=== PATIENT | male | born 1935 | race Caucasian/White ===

== ENCOUNTER 2018-08-05 15:38 | Inpatient (IN) | payer OTHER ==
[~2018-08-05] VITALS: Ht 175.3 cm; Wt 68.0 kg
[~2018-08-05 15:38] MED LIST: ACETAMINOPHEN-1 EAC1 PO; APAP W/CODEINE1 TA2 PO; ASA81BEC PO; ATORVASTATIN CA40 MG PO; EFFIENT10 MG PO; FLONASE 0.05%50 MCG INH; HYDROCODONE-AP1 EAC6 PO; LISINOPRIL5 MG PO; NITROGLYCERIN0.4 MG SL; NORCO 10-325 T1 EACH PO; PLAVIX 75 MG TA75 M1 PO; PROTONIX40 M1 PO; TIMOLOL MA0.25 %/5 M OP; TOPROL XL25 MG PO; XALATAN2.5 ML OP; ZANTAC 150MG T150 MG PO
[2018-08-05] MEDS ORDERED: FISH OIL 1,001000 M2 PO (18:08)
[2018-08-05] MEDS ORDERED: HYDROCODON-ACE1 EAC5 PO (18:09)
[2018-08-05] MEDS ORDERED: CLOPIDOGREL75 MG PO (18:10)
[2018-08-05] MEDS ORDERED: ASPIR 8181 MG PO (18:11)
[2018-08-05] MEDS ORDERED: ATORVASTATIN CA40 MG PO (18:11)
[2018-08-05] MEDS ORDERED: TESSALON PERLE100 MG PO (18:12)
[2018-08-05] MEDS ORDERED: XALATAN2.5 ML OPHTHALMIC (18:13)
[2018-08-05 18:15] VITALS: BP 117/68
[2018-08-05] MEDS ORDERED: TIMOLOL MA0.25 %/52 (18:15)
--- NOTE | 2018-08-05 18:35 | NUR ---
adm PT IS A DIRECT ADMIT FROM [facility]. PT ORIENTED TO ROOM. FAMILY AT BEDSIDE, SEEN AND EXAMINED BY HOSPITALIST. ADM ORDERS CARRIED OUT.
[2018-08-06 03:58] VITALS: BP 123/72
[2018-08-06 05:43] LABS: HEMOGLOBIN 12.3 gm/dL (14.0-18.0); MCH 30.8 pg (26.0-34.0); MCHC 33.3 g/dL (28.0-37.0); MCV 92.6 fL (80.0-100.0); RDW 13.9 % (10.5-14.5); WBC 6.7 thou/uL (4.0-11.0)
[2018-08-06 05:53] LABS: INR 1.1; PROTIME 11.6 Seconds (9.3-11.4)
[2018-08-06 06:13] LABS: ALBUMIN 2.8 g/dL (3.4-5.0); CALCIUM 8.4 mg/dL (8.5-10.1); CREATININE 0.8 mg/dL (0.7-1.3); TOTAL BILIRUBIN 0.5 mg/dL (<0.1-1.0); TOTAL PROTEIN 5.3 g/dL (6.4-8.2)
--- NOTE | 2018-08-06 06:41 | NUR ---
Assumed care at 1845. Pt resting in bed. Complained of back pain. Gave him some pain medication. Vitals are stable and call light within reach. Will continue to monitor.
[2018-08-06 07:18] VITALS: BP 155/86
--- NOTE | 2018-08-06 13:56 | 2DMMODE ---
[facility] [address] [place] [address] 2 D/M-MODE ECHOCARDIOGRAM Name: JACKSONDAWIT VARGAS Room #: 462-P ADM IN M.R.#: [id number] Admission: 08/05/18 Attend Phys: Dejon Moran Discharge: Date of : 37 Date of Service: 08/06/18 1356 Report #: [id number] THIS REPORT FOR: //name// APPROVED REPORT Study performed: 08/06/2018 11:51:37 EXAM: Comprehensive 2D, Doppler, and color-flow Echocardiogram Patient Location: Echo lab Room #: 462 Status: routine BSA: 1.83 HR: 61 bpm BP: 155/86 mmHg Rhythm: NSR Other Information Study Quality: Adequate Indications COPD CAD Hypertension/HDD 2D Dimensions RVDd: 28.59 mm IVSd: 6.55 (7-11mm) LVOT Diam: 22.64 (18-24mm) LVDd: 48.26 mm PWd: 7.30 (7-11mm) Ascending Ao: 36.82 (22-36mm) LVDs: 32.82 (25-40mm) Aortic Root: 30.37 mm IVC: 17.00 mm Volumes Left Atrial Volume (Systole) Single Plane 4CH: 40.74 mL Single Plane 2CH: 34.74 mL LA ESV Index: 24.00 mL/m2 Aortic Valve AoV Peak Elijah.: 0.80 m/s AO Peak Gr.: 2.54 mmHg LVOT Max P.74 mmHg LVOT Max V: 0.66 m/s JEFFREY Vmax: 3.33 cm2 Mitral Valve E/A Ratio: 0.6 MV Decel. Time: 338.09 ms [facility] [place] [address] 2 D/M-MODE ECHOCARDIOGRAM Name: JACKSONDAWIT MONTEREY Room #: 462-P [facility] IN .R.#: [id number] Admission: 08/05/18 Attend Phys: Dejon Moran Discharge: Date of : 37 Date of Service: 08/06/18 1356 Report #: [id number] MV E Max Elijah.: 0.42 m/s MV A Elijah.: 0.76 m/s MV PHT: 98.05 ms IVRT: 119.95 ms Pulmonary Valve PV Peak Elijah.: 0.70 m/s PV Peak Gr.: 1.96 mmHg Pulmonary Vein P Vein S: 0.36 m/s P Vein A: 0.32 m/s P Vein D: 0.25 m/s P Vein A Dur.: 96.9 msec P Vein S/D Ratio: 1.44 Tricuspid Valve TR Peak Elijah.: 2.28 m/s TR Peak Gr.: 20.85 mmHg PA Pressure: 26.00 mmHg Left Ventricle The left ventricle is normal size. Regional wall motion is normal. There is normal left ventricular wall thickness. The left ventricular systolic function is normal. The left ventricular ejection fraction is within the normal range. LVEF is 55-60%. Grade I - abnormal relaxation pattern. Right Ventricle The right ventricle is normal size. The right ventricular systolic function is normal. Atria The left atrium size is normal. The right atrium size is normal. Aortic Valve The aortic valve is normal in structure. Aortic valve is calcified. Trace aortic regurgitation. There is no aortic valvular stenosis. Mitral Valve The mitral valve is normal in structure. Trace mitral regurgitation. No evidence of mitral valve stenosis. Tricuspid Valve The tricuspid valve is normal in structure. There is trace tricuspid regurgitation. [facility] [address] [place] [address] 2 D/M-MODE ECHOCARDIOGRAM Name: DAWIT PAZ ALICIA Room #: 462[facility] IN M.R.#: [id number] Admission: 08/05/18 Attend Phys: Dejon Moran Discharge: Date of : 37 Date of Service: 08/06/18 1356 Report #: [id number] Estimated PAP 26 mmHg. There is no pulmonary hypertension. Pulmonic Valve The pulmonary valve is normal in structure. Trace pulmonic regurgitation. Great Vessels The aortic root is normal in size. IVC is normal in size and collapses >50% with inspiration. Pericardium There is no pericardial effusion. <Conclusion> The left ventricle is normal size. LVEF is 55-60%. Grade I - abnormal relaxation pattern. The right ventricle is normal size. The left atrium size is normal. The aortic valve is normal in structure. Aortic valve is calcified. Trace aortic regurgitation. There is no aortic valvular stenosis. Trace mitral regurgitation. There is trace tricuspid regurgitation. Estimated PAP 26 mmHg. There is no pulmonary hypertension. The aortic root is normal in size. There is no pericardial effusion. <ELECTRONICALLY SIGNED> By: Rafi Coleman MD, [facility] 08/06/18 1356 1356 1356 Rafi Coleman MD, FACC /INF
--- NOTE | 2018-08-06 14:01 | NUR ---
PT ADMITTED RELATED TO HCAP, HYPOXIA. CM REVIEWED CHART AND SPOKE WITH CARE TEAM CM MET WITH PT AT BEDSIDE THIS DAY. PT IS A&O X4. CM ROLE INTRODUCED. PT INDICATED HE LIVES IN A HOUSE WITH HIS WITH 2 STEPS TO ENTER AND NO STEPS INSIDE. 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 PT INDICATED HE HAS HOME O2 CONCENTRATOR FOR NOC USE AT 3L THROUGH A COMPANY IN [place]. HE WILL CHECK PROVIDE AND LET CM KNOW. HE INDICATED HE IS WANTING PORTABLE TANKS FOR UPON DC. CM INDICATED THAT TESTING WOULD BE DONE TO SEE IF PT QUALIFIES. PT IS WITHOUGH PCP AND INDICATED THAT DR. CLAY IS ASSISTING THEM IN FINDING NEW ONE. PT STATED THAT HE PLANS TO RETURN HOME ONCE MEDICALLY STABLE. CM TO FOLLOW INDICATED WITH DC PLANNING.
[2018-08-06 14:45] VITALS: BP 107/74
--- NOTE | 2018-08-06 16:47 | EKG ---
[address] [place] [address] ELECTROCARDIOGRAM REPORT Name: JACKSONDAWIT GONZALEZALD Room #: 462- ADM IN M.R.#: [id number] Admission: 08/05/18 Attend Phys: Dejon Estevez Discharge: Date of : 37 Report #: [id number] THIS REPORT FOR: //name// [facility] Test Date: 2018-08-06 Test Time: 09:15:30 Pat Name: DAWIT PAZ Department: Room: 462 Gender: M Melter Operator: KELSIE : 1935 Requested By: Rafi Coleman Order Number: [id number] MD: Rodolfo Leger Measurements Intervals [place] Rate: 57 P: 74 IN: 145 QRS: -14 QRSD: 89 T: 63 QT: 460 QTc: 448 Interpretive Statements Sinus rhythm Anteroseptal infarct, age indeterminate Nonspecific ST and T wave abnormality Compared to ECG 04/24/2015 07:54:18 Septal Q waves are now present Electronically Signed On 08-06-2018 16:47:49 VETERINARY BACTERIOLOGIST by Rodolfo Leger [email or web address] <ELECTRONICALLY SIGNED> By: Rodolfo Leger MD, [facility] 08/06/18 1647 0915 4 Rodolfo Leger MD, [facility] /EPI
[2018-08-06 19:23] VITALS: BP 116/68
[2018-08-07 03:00] VITALS: BP 133/85
[2018-08-07 03:11] VITALS: BP 133/85
--- NOTE | 2018-08-07 05:44 | NUR ---
Pt. rested quietly at intervals during the night when checked on during frequent rounds. He has been given po pain meds (see emar) for c/o back pain (see emar) with some relief noted. Pt. up ad johana in his room. No c/o increased shortness of air.
[2018-08-07 07:35] VITALS: BP 143/90
--- NOTE | 2018-08-07 08:10 | HC ---
[facility] [place] [address] CONSULTATION Name: DAWIT PAZ Room #: 462-P ADM IN M.R.#: [id number] Admission: 08/05/18 Attend Phys: Jose Morales MD Discharge: Date of : 37 Report #: [id number] THIS REPORT FOR: //name// CC: RYNE ZAMBRANO FAM unknown VAN CASTILLOSofía ROCHA HISTORY OF PRESENT ILLNESS: The patient is a very pleasant 82-year-old gentleman from the [facility] who has had some troubles with bronchitis for the last several, maybe, about a week. He had been on a Z-John and some prednisone. He was just finishing those. He came to the ER yesterday, had bite at Dc. Chest x-ray showed a question mass. CAT scan there shows a 2.2 cm left superior upper lobe mass near the pleural surface. There did not appear to be any other lymph nodes or significant abnormalities seen. There are also no worrisome changes on the bones. The patient states that he has had some sinus drainage. It had been mostly clear for several months, though has occasional color, had been green in the past. This causes some slight sinus headache. No nausea or vomiting. Does have the coughing. He has had some sharp pain in his leg. He does have some dry skin. He has some seborrheic keratosis. He does have a little bit of heartburn and sore throat from coughing. PAST MEDICAL HISTORY: Notable for coronary artery disease with stents and also select iliofemoral stents by Dr. Cardona. Also a history of hypertension, hypercholesterolemia. Past history of moderate renal and iliac stenosis, prior appendectomy. Also right shoulder rotator cuff surgery and elbow surgery on the right arm, also tonsillectomy. COPD. Glaucoma. SOCIAL HISTORY: Quit smoking 5-6 years ago. No alcohol, no street drugs. 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 FAMILY HISTORY: Father had stomach cancer in his late 60s. Mother had diabetes, additional heart issue. 4 children alive and well. Note that his had lung cancer, was treated by Dr. Katty Rocha with what sounds like stereotactic radiation therapy. Family history also notable for a sister and a niece with lupus. ALLERGIES: REPORTEDLY TO ATIVAN, THOUGH I AM NOT SURE. MEDICATIONS: At home included aspirin 81, Lipitor 40, clopidogrel 75 daily, dexamethasone 2 mg daily, hydrocodone p.r.n., fish oil daily, latanoprost eyedrops, metoprolol ER 25 mg daily, Tessalon Perles 1 capsule 3 times daily p.r.n., timolol eyedrops with vitamin A 500 mg daily, Zantac 1 tab b.i.d., Zithromax. [address] [address] CONSULTATION Name: DAWIT PAZ Room #: 462-P ADM IN M.R.#: [id number] Admission: 08/05/18 Attend Phys: Jose Morales MD Discharge: Date of : 36 Report #: [id number] CURRENT MEDICATIONS: In the hospital include atorvastatin 40, metoprolol 25 daily, timolol eyedrops, pantoprazole 40 daily, famotidine 20 at bedtime, latanoprost at night. Guaifenesin q.4 p.r.n., benzonatate Perles q.8 p.r.n., hydrocodone 1 tab q.6 p.r.n. PHYSICAL EXAMINATION: VITAL SIGNS: Height is 5 feet 9 inches, 175.26 cm. Weight 150 pounds, which is 68.04 kilograms. Blood pressure 155/86, O2 sat 100, respirations 16, pulse 57. Temperature afebrile, 97.4. MOOD: The patient is alert, pleasant and conversant. NEUROLOGIC: Face is symmetrical. Speech and thought pattern normal. Moving all extremities. SKIN: Has a few seborrheic keratoses, slightly dry. No unusual ecchymosis or bruising. HEART: Seems regular rate. ABDOMEN: Soft, without masses, nontender. LYMPH NODES: There is a small one underneath the right axilla. He has an IV in that side, very small, none in the neck, submandibular or groin region. EXTREMITIES: Without clubbing, cyanosis or edema. LABORATORY DATA: Shows here normal chemistries with calcium 8.4, BUN 14, creatinine 0.8. Transaminases normal. Albumin 2.8. INR of 1.1. White count 6.7, hemoglobin 12.3, slightly low. MCV 92.6, platelets 173. Differential outside had been normal. ASSESSMENT AND PLAN: 1. 2.2 cm left upper lobe mass near pleura on outside CAT scan. The patient and family were worried that this may be cancer, but we would also like biopsy proof of cancer versus infectious or other etiology. We will await Interventional Radiology and Oncology's thoughts regarding whether the patient can be on Plavix and also from IR whether they would wish to proceed with biopsy. We will also consult Pulmonary regarding the patient's chronic obstructive pulmonary disease. To see whether his lungs would tolerate lung biopsy and also surgical resection if found. I did talk about possibly ordering a CT scan of abdomen and pelvis and bone scan. We will also wait if the patient goes outpatient, could consider outpatient PET scan as evaluation. We will go ahead and order MRI head for completeness. Also, given the patient's headaches, these are likely sinus related. Note the patient's had sterotactic radiation with Dr. Katty Rocha and they are familiar with him. 2. Anticoag. Currently had been on aspirin and Plavix. We will await their thoughts of whether to continue Lovenox. Consider Lovenox bridging or when we can proceed with biopsy. 3. Weight loss of 10 pounds. Continue nutritional support. 4. Coronary artery disease and peripheral arterial disease per CV. 5. Hypertension, metoprolol. 6. Hyperlipidemia, atorvastatin. [facility] [address] [place] [address] CONSULTATION Name: DAWIT PAZ Room #: 462-P [facility] IN M.R.#: [id number] Admission: 08/05/18 Attend Phys: Jose Morales MD Discharge: Date of : 36 Report #: [id number] 7. Bronchitis. We will probably need aerosols, not currently on steroids or antibiotics. Again consult Pulmonary. 8. Sinus drainage, we will defer to others. 9. Glaucoma. Continue his eyedrops. <ELECTRONICALLY SIGNED> By: Vinayak Soto MD 08/07/18 0810 0828 1230 Vinayak Soto MD /nt
[2018-08-07] MEDS ORDERED: NORCO 10-325 T1 EACH PO (09:40)
[2018-08-07] MEDS ORDERED: CYCLOBENZAPRINE5 MG PO (09:40)
[2018-08-07 13:35] VITALS: BP 111/75
--- NOTE | 2018-08-07 17:29 | NUR ---
ASSUMED CARE AT 0700. AXOX4. UP AD JESSICA. LUMBAR XR AND HEAD MRI COMPLETED. AWAITING PFT AND LUNG BIOPSY. C/O BACK PAIN. VOTERAN GEL ORDERED. REPORTS RELIEF. NO S/S ACUTE DISTRESS NOTED OR REPORTED AT THIS TIME. WILL CONT TO MONITOR FOR ANY CHANGES IN CONDITION.
[2018-08-07 20:15] VITALS: BP 106/7; BP 106/76
--- NOTE | 2018-08-08 04:48 | NUR ---
Pt. rested quietly at intervals during the night when checked on during frequent rounds. He did have a good size bowel movement as verbalized by patient. Po pain meds given (see emar) for c/o back pain with some relief noted. No c/o increased shortness of air.
[2018-08-08 05:32] VITALS: BP 127/79
[2018-08-08 09:20] VITALS: BP 105/67
--- NOTE | 2018-08-08 09:41 | HC ---
[facility] [place] [address] [address] CONSULTATION Name: DAWIT PAZ Room #: 462-P ADM IN M.R.#: [id number] Admission: 08/05/18 Attend Phys: Jose Morales MD Discharge: Date of : 36 Report #: [id number] THIS REPORT FOR: //name// CC: FAM unknown Dejon Estevez DATE OF SERVICE: 08/05/2018 REASON FOR ADMISSION: Cough and shortness of breath. HISTORY OF PRESENT ILLNESS: The patient is an 82-year-old who visited with [facility] for 3 days' cough and shortness of breath. He is known to have hypertension and previous medical history of coronary artery disease status post drug-eluting stent to his RCA with couple of other stents. He is also known to have hyperlipidemia. He suffers from chronic degenerative joint disease with ruptured disk causing him left footdrop. He is also known to have peripheral vascular disease with iliac and renal stenosis. Appropriate workup was initiated in [facility] facility. This has shown ovoid pulmonary mass within the posterior superior aspect of the left upper lobe measuring 2.2 x 2.2 x 2.2 and it abuts the posterior pleural surface. This was per the radiologist consistent with a primary pulmonary malignancy. There is also a hepatic cyst. The patient had severe emphysema and was transferred to our facility to further evaluate. He admitted to significant weight loss and loss of appetite. No night sweats. No hemoptysis. PAST MEDICAL HISTORY: 1. Coronary artery disease. 2. Glaucoma. 3. Hyperlipidemia. 4. Hypercholesterolemia. 5. Peripheral vascular disease. 6. Appendectomy. 7. Rotator cuff surgery. 8. Elbow surgery. 9. Tonsillectomy. 10. Hernia surgery. ALLERGIES: ATIVAN. MEDICATIONS: Currently, the patient is maintained on the followin. Aspirin. 2. Atorvastatin. 3. Plavix. 4. Dexamethasone. 5. Hydrocodone. 6. Latanoprost. [facility] [address] [place] [address] CONSULTATION Name: DAWIT PAZ Room #: 462-P [facility].#: [id number] Admission: 08/05/18 Attend Phys: Jose Morales MD Discharge: Date of : 36 Report #: [id number] 7. Metoprolol. 8. Tessalon. 9. Timolol. FAMILY HISTORY: His dad had stomach cancer. Mom has diabetes mellitus and heart troubles. SOCIAL HISTORY: He is an ex-smoker. He smoked for almost 25 years with 1 pack per day smoking history. 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 REVIEW OF SYSTEMS: GENERAL: No fever or chills, but significant weakness. CARDIOVASCULAR: No chest pain or palpitation. PULMONARY: Significant for cough, no hemoptysis. GASTROINTESTINAL: Reduced appetite and weight loss. GENITOURINARY: No frequency, no urgency. MUSCULOSKELETAL: Left lower extremity weakness. SKIN: No rash or ulcerations. PHYSICAL EXAMINATION: GENERAL: He was alert, oriented, in no apparent distress; however, he did have frequent bouts of cough. VITAL SIGNS: Blood pressure from his other facility was 140/100, heart rate was 85, temperature was 97.9, BMI was 21. He is emaciated. HEAD AND NECK: No jugular venous distention, no lymph nodes. CHEST: Decreased air entry bilaterally. CARDIOVASCULAR: No rub detected. ABDOMEN: Soft, nontender with no hepatosplenomegaly. LOWER EXTREMITIES: No edema with intact peripheral pulses. LABORATORY DATA: From his other facility reviewed. Glucose is 119, BUN is 14, creatinine 0.9, potassium is 3.9, calcium is 8.7. CBC showed a white blood cell count of 11.1, hemoglobin 14.7 and platelets of 214. Blood gas showed a pH of 7.4, pCO2 of 42. Chest x-ray and CT were consistent with a left upper lobe mass. ASSESSMENT, IMPRESSION AND PLAN: 1. Left upper lobe mass with a differential diagnosis of lung cancer. 2. Hypertension. 3. Coronary artery disease. 4. Hyperlipidemia. 5. Peripheral vascular disease. 6. The patient will be admitted. We will consult Cardiology regarding his Plavix, if it is okay to hold the Plavix and aspirin and arrange for the patient to have a lung biopsy. We will discuss with the Pulmonary team along with [address] [address] CONSULTATION Name: DAWIT PAZ Room #: 462-P [facility] IN M.R.#: [id number] Admission: 08/05/18 Attend Phys: Jose Morales MD Discharge: Date of : 37 Report #: [id number] Interventional Radiology about the timing of the lung biopsy. Check stat labs. 7. Resume his medications. 8. Symptomatic treatment for his cough. 9. Routine prophylaxis for his GI. 10. Routine prophylaxis for DVT once we obtain the lung biopsy. <ELECTRONICALLY SIGNED> By: Amparo Graham MD 08/08/18 0941 1809 1833 Amparo Graham MD /nt
[2018-08-08 13:35] VITALS: BP 105/67
--- NOTE | 2018-08-08 14:34 | NUR ---
Roomair sat noted from yesterday to be 93%. Should the pt have sob and a repeated exercise sat that qualifies for continuous; a script and progress note from the physician can be faxed to [facility] locally at [phone]. They can bring a portable to the hospital and arrange for additional portables at home in [place]. He has service through the [facility] for his nocturnal setup. Their number is [phone]. Possible dc soon. Awaiting PFT's. Additional workup likely as an outpt per cardiology and oncology.
[2018-08-08 14:35] VITALS: BP 102/69
[2018-08-08 19:45] VITALS: BP 108/74
--- NOTE | 2018-08-09 04:00 | NUR ---
Pt transferred to unit @ 1930 oriented to room and call light system. Pt A/OX4,up ad johana with no problems voiced. Pt c/o pain to back/neck/shoulders medicated with [place] per EMAR with some relief reported.VSS.Voiding without any complaints. Does have a non productive,breathing tx administered as ordered.Also did c/o dry mouth,Tessalon agnes administered at HS with relief noted. O2 sats at 93% on RA.Resting quietly eyes closed with no distress noted. Call light/personal items within reach.
[2018-08-09 08:15] VITALS: BP 122/84
[2018-08-09 08:27] VITALS: BP 122/84
--- NOTE | 2018-08-09 10:29 | NUR ---
SW reviewed chart and spoke with nursing and attending physician. Pt was transferred to [facility] from and is progressing towards goals for discharge. Awaiting results of rest/exercise oximetry to determine pt's home O2 needs. Pt may need portable O2. Pt is current with [facility]. Plan is for pt to d/c home when medically stable. SW is following to assist as needed with discharge planning.
[2018-08-09] MEDS ORDERED: CELEBREX 200 M200 M1 PO (10:38)
--- NOTE | 2018-08-09 11:11 | NUR ---
PATIENT CARE WAS ASSUMED AT 0715.PATIENT IS ALERT AND ORIENTED X4.PATIENT IS ABLE TO AMBULATE ON HIS OWN.PATIENT STATED THAT HIS PAIN IS 6/10 FROM A 7/10, PATIENT HAD PAIN MEDICATION EARLY IN MORNING.IV IS PATENT AND SALINE LOCKED.VITALS ARE STABLE.CALL LIGHT, PHONE, AND PERSONAL BELONGINGS ARE WITHIN REACH. WILL CONTINUE TO MONITOR.
--- NOTE | 2018-08-09 12:52 | NUR ---
PATIENT IS DISCHARGED TO GO HOME WITH SELF CARE.IV WAS TAKEN OUT GAUZE PLACED WITH TAPE.D/C PAPERS WERE GIVEN TO PATIENT , WITH EDUCATION ON MEDICATIONS, AND FOLLOW [employer].PATIENT HAS NO QUESTIONS AT THIS TIME.PATIENT IS D/C IN STABLE CONDITION.TRANSPORTATION WILL TAKE PATIENT OUT VIA W/C TO [facility].
[2018-08-09] MEDS ORDERED: HOME OXYGEN (14:13)
--- NOTE | 2018-08-10 11:52 | NUR ---
LEONARD received call from Ryann at [facility] late yesterday afternoon, who states they received info, and need additional signatures for insurance purposes. Received paperwork and had attending physician's FINANCIAL SYSTEMS DIRECTOR sign. SW returned fax and included H&P as requested. LEONARD spoke with Alistair at [facility] to notify of fax. Per Alistair, they are in the process of moving their office. He is unable to verify they received the info at the moment, but will check when computers/fax machine is available. SW is available should additional needs arise.
--- NOTE | 2018-08-13 07:59 | HC ---
[facility] [place] [address] CONSULTATION Name: DAWIT PAZ Room #: 223-P [facility] IN M.R.#: [id number] Admission: 08/05/18 Attend Phys: Jose Morales MD Discharge: 08/09/18 Date of : 36 Report #: [id number] THIS REPORT FOR: //name// CC: FAM unknown Dejon Estevez HISTORY OF PRESENT ILLNESS: The patient is an 82-year-old male, well known to myself. Previously followed by Dr. Jaquez in [place], [place]. I follow him for stable coronary artery disease. He has had a drug-eluting stent to his RCA in 2013 and a predominantly aborted inferior wall infarct. Also, a circumflex intervention in 2014. Moderate 3-vessel disease at that catheterization, which was in April. He had a negative stress echo in my office in November of last year. He is transferred up here from [place] for some progressive dyspnea, shortness of breath and unremitting cough for the last month or longer. Complaining of some weakness and some pain. He is accompanied by his daughter. He has been compliant with medications, which are baby aspirin, Lipitor 40, Plavix 75, fish oil, hydrocodone, Xalatan, Toprol 25, Zantac and timolol eyedrops. No chest pain, angina. There is a mass on the x-ray suggestive of a possible carcinoma, which is in need of a biopsy. This is in the left upper lobe, 2 x 2 x 2 x 2. Suspected for a possible primary malignancy. PAST MEDICAL HISTORY: Positive for coronary artery disease. As stated above, hypertension, hypercholesterolemia, COPD, prior tobacco use, DJD, peripheral artery disease, appendectomy, elbow surgery, tonsillectomy, shoulder surgery. FAMILY HISTORY: Mother had premature coronary disease. SOCIAL HISTORY: Prior smoker. No alcohol use. He is accompanied by his daughter here. He is still independent. ALLERGIES: ATIVAN, LORAZEPAM. LABORATORY DATA: H and H are 12 and 37, white count 6.7. Sodium 143, potassium 4.0, creatinine 0.8. Liver function tests were normal. Total protein, albumin slightly low. PHYSICAL EXAMINATION: GENERAL: Pleasant, alert. He is somewhat emotional. He denies any prior chest pain, anginal complaints. VITAL SIGNS: Blood pressure 154/86, pulse is 60s and regular. HEENT: Eyes reveal xanthelasmas. Pharynx is clear. NECK: Shows preserved upstrokes without JVD or bruits. LUNGS: Prolonged expiratory phase, but clear. CARDIOVASCULAR: Regular rate and rhythm, S1, S2 distant. No significant murmur or gallop. ABDOMEN: Soft. No HSM or abdominal bruit. EXTREMITIES: Reveal diminished distal pulses, but intact. [facility] [address] [place] [address] CONSULTATION Name: DAWIT PAZ Room #: 223-P [facility] IN M.R.#: [id number] Admission: 08/05/18 Attend Phys: Jose Morales MD Discharge: 08/09/18 Date of : 36 Report #: [id number] NEUROLOGIC: Nonfocal. SKIN: Warm and dry without xanthoma or ulcer. MUSCULOSKELETAL: No gross joint deformity. Generalized arthritic changes are noted. SKIN: Warm and dry. ASSESSMENT: 1. Coronary artery disease with prior right coronary artery and circumflex stents in 2013 and 2014, preserved left ventricular function. 2. Hypertension. 3. Hypercholesterolemia. 4. Chronic obstructive pulmonary disease. 5. Left upper lobe lung mass, currently being worked up. 6. Degenerative joint disease. RECOMMENDATIONS AND PLAN: We will obtain an echo Doppler and EKG, no unstable anginal type symptoms. Can hold the Plavix safely at this setting 3 years post-stent. Then await tissue diagnosis. If there would be significant recommendations for a lung resection or surgery, would presumably proceed with nuclear stress testing prior to that, but I suspect that would be as an outpatient. We will obtain an echo Doppler and EKG currently and hold Plavix. Okay for lung biopsy. I have discussed this with the patient and his daughter. Also with Dr. Morales who is admitting physician. <ELECTRONICALLY SIGNED> By: Rafi Coleman MD, FACC 08/13/18 0759 [id number] Rafi Coleman MD, FACC /nt
== END 2018-08-09 12:55 | disposition home or self-care (01) | DRG 189 ==
LOC: 4W 15:38 → SICU 08-08 19:46 → ENTRNSPT 08-09 12:41 → EDTRNSPTSTS 08-09 12:43 → SICU 08-09 12:55
PROVIDERS: Hospitalist; ADMIT Hospitalist
DX: J96.01 Acute respiratory failure with hypoxia (principal); E43 Unspecified severe protein-calorie malnutrition; R91.8 Other nonspecific abnormal finding of lung field; I25.10 Atherosclerotic heart disease of native coronary artery without angina pectoris; H40.9 Unspecified glaucoma; E78.5 Hyperlipidemia, unspecified; E78.00 Pure hypercholesterolemia, unspecified; I10 Essential (primary) hypertension; J44.9 Chronic obstructive pulmonary disease, unspecified; J40 Bronchitis, not specified as acute or chronic; M19.90 Unspecified osteoarthritis, unspecified site; K21.9 Gastro-esophageal reflux disease without esophagitis; M47.896 Other spondylosis, lumbar region; I73.9 Peripheral vascular disease, unspecified; Z90.49 Acquired absence of other specified parts of digestive tract; Z88.8 Allergy status to other drugs, medicaments and biological substances; Z80.0 Family history of malignant neoplasm of digestive organs; Z82.49 Family history of ischemic heart disease and other diseases of the circulatory system; Z87.891 Personal history of nicotine dependence; Z95.5 Presence of coronary angioplasty implant and graft; Z95.820 Peripheral vascular angioplasty status with implants and grafts; Z79.01 Long term (current) use of anticoagulants; Z79.82 Long term (current) use of aspirin; Z79.899 Other long term (current) drug therapy; Z68.22 Body mass index [BMI] 22.0-22.9, adult
CPT/HCPCS: 10045; 15002

== ENCOUNTER 2018-11-11 09:27 | Inpatient (IN) | payer OTHER ==
[~2018-11-11] VITALS: Ht 175.3 cm; Wt 68.0 kg
--- NOTE | ~2018-11-11 | HC ---
[facility] [place] [address] CONSULTATION Name: DAWIT PAZ Room #: 354-P ADM IN M.R.#: [id number] Admission: 11/11/18 ������������������ Attend Phys: Julien Pena MD Discharge: ������������������ Date of : 36 Report #: [id number] THIS REPORT FOR: //name// CC: DR ROHIT Porter [place] REQUESTING PHYSICIAN: Dr. Babin. HISTORY OF PRESENT ILLNESS: The patient is an 83-year-old male who presented to [facility] for upper GI bleed. He has a known history of gastric cancer, also of lung cancer. He has a history of upper GI bleed previously, recently underwent a biopsy of this gastric cancer. Subsequently, was off aspirin and Plavix and then just recently in the last 3 days, had restarted it prior to having these episodes of hematemesis. The patient was seen at [facility] initially and subsequently transferred to [facility]. His hemoglobin initially was 11.8, it has progressed down to the 7 range now. He has been seen by Dr. Soto who he had a discussion with today, and the patient does not desire and is not likely a candidate given his overall physical state for continued therapy for these cancer processes. The patient desires to discuss palliative care options. The patient's spouse and daughter are also present for my interview. The patient currently reports that his most concerning symptom is neck pain, although he is also having back pain and shortness of breath as well. The patient has been taking p.r.n. Commiskey 10/325 about every 5 hours at home. He states that he and spouse agrees that the patient allows for pain to get out of control at times prior to taking his medication, although he has never had sedative effects of the medication or have difficulty breathing with it. PAST MEDICAL HISTORY: Significant for coronary artery disease. Additionally, COPD, lung cancer, gastric cancer. PAST SURGICAL HISTORY: Right shoulder surgery x 3. Appendectomy, hernia surgery. CHAN stent in the right coronary artery in May. SOCIAL HISTORY: Former smoker. Again, spouse and daughter are present at my interview. Currently, he agrees to a DNR/DNI status as he previously had told the facility. MEDICATIONS: Previously on metoprolol succinate, BuSpar, Plavix, aspirin, Lipitor, Commiskey. FAMILY HISTORY: Noncontributory. REVIEW OF SYSTEMS: Again, the patient does have significant weight loss. He has cancer processes as previously noted. [place] [address] CONSULTATION Name: DAWIT PAZ Room #: [facility] IN M.R.#: [id number] Admission: 11/11/18 ������������������ Attend Phys: Julien Pena MD Discharge: ������������������ Date of : 36 Report #: [id number] today. RESPIRATORY: Does report dyspnea at times, especially with exertion, although at rest, he appears to be stable. CARDIOVASCULAR: Denies chest pain, palpitations or edema. ABDOMEN: Does report some abdominal pain. Again, he has had hematemesis, which is presenting symptom. MUSCULOSKELETAL: Diffuse generalized weakness. PHYSICAL EXAMINATION: VITAL SIGNS: Include temperature 36.8, pulse 77, respirations 18, blood pressure 108/54, 96% on room air at my discussion. GENERAL: The patient appears to be alert. He is oriented to at least person and place. HEENT: No scleral icterus. No conjunctival injection. CARDIOVASCULAR: Regular rate and rhythm without murmur. RESPIRATORY: He has some diffuse rales, but they are mild in nature. ABDOMEN: Tender to palpation. Mild distention. MUSCULOSKELETAL: He has tenderness to palpation in bilateral paraspinal musculature of the cervical spine. LABORATORY DATA: Hemoglobin 7.4, from initial 9.2. Platelets 172. ASSESSMENT AND PLAN: 1. Hematemesis, had an extensive discussion today. They are amenable to him having possible transfusions if needed if hemoglobin drops to a significant extent. However, they are definitely desiring to have hospice care services. I have discussed that they would like to have hospice in [place] at the patient's home. He wishes to have the hospice provider at his home, which is [place], I believe. I have discussed this with case management. Discussed the extent of hospice and what this could do for the patient. Discussed it versus palliative care. The patient does not desire to have any further treatments, so hospice is likely more appropriate for the patient. Discussed additionally pain management. Discussed at this time, we would start morphine sulfate or MS Contin 15 mg twice daily starting this evening, so we could witness how the effects of this medication in addition to the patient's home Commiskey, which we will continue. The patient has had pretty significant reactions to benzodiazepines, so we will hold off for now on this. Certainly we are holding aspirin and Plavix given this bleed, spent approximately 50 minutes in discussion of advanced care planning. 2. Gastric cancer. As above, I appreciate Dr. Soto's consultation. The patient is wishing to have hospice. We will proceed with this. 3. Lung cancer as above. Again, at this point in time I did discuss that a long-acting opioid may also benefit his dyspnea. Thank you very much for this consultation. I have given them my contact information for any further contacts with regards to needs of palliative care [facility] [address] [place] [address] CONSULTATION Name: DAWIT PAZ Room #: 354-P ADM IN M.R.#: [id number] Admission: 11/11/18 ������������������ Attend Phys: Julien Pena MD Discharge: ������������������ Date of : 36 Report #: [id number] nature, certainly I can be reached if further information is needed or further changes to medication. ��������������������������������������������� ���������������������������������������� By: ��������������������������������������������� [id number] Demar Zhang DO /nt
[2018-11-11 09:23] VITALS: BP 104/48
[~2018-11-11 09:27] MED LIST changes: +ASPIR 8181 MG PO; +CELEBREX 200 M200 M1 PO; +CLOPIDOGREL75 MG PO; +CYCLOBENZAPRINE5 MG PO; +FISH OIL 1,001000 M2 PO; +HOME OXYGEN; +HYDROCODON-ACE1 EAC5 PO; +TESSALON PERLE100 MG PO; +TIMOLOL MA0.25 %/52; +XALATAN2.5 ML OPHTHALMIC
[2018-11-11] MEDS ORDERED: BUSPIRONE HCL10 MG PO (10:07)
[2018-11-11] MEDS ORDERED: VITAMIN A PO (10:13)
[2018-11-11] MEDS ORDERED: PLAVIX 75 MG TA75 M1 PO (10:14)
[2018-11-11 12:01] LABS: HEMATOCRIT 27.4 % (42.0-52.0); HEMOGLOBIN 9.2 gm/dL (14.0-18.0); MCH 31.5 pg (26.0-34.0); MCHC 33.5 g/dL (28.0-37.0); MCV 94.1 fL (80.0-100.0); RBC 2.91 mil/uL (4.50-6.00); RDW 14.3 % (10.5-14.5); WBC 5.3 thou/uL (4.0-11.0)
[2018-11-11 12:02] VITALS: BP 112/60
[2018-11-11 12:02] LABS: CALCIUM 7.8 mg/dL (8.5-10.1); CREATININE 0.7 mg/dL (0.7-1.3)
[2018-11-11 12:08] LABS: ALBUMIN 2.4 g/dL (3.4-5.0); TOTAL BILIRUBIN 0.4 mg/dL (<0.1-1.0); TOTAL PROTEIN 4.7 g/dL (6.4-8.2)
[2018-11-11] MEDS ORDERED: NORCO 10-325 T1 EACH PO (14:57)
[2018-11-11 15:11] LABS: HEMATOCRIT 25.5 % (42.0-52.0); HEMOGLOBIN 8.6 gm/dL (14.0-18.0)
[2018-11-11 16:34] VITALS: BP 90/57
--- NOTE | 2018-11-11 17:58 | NUR ---
PATIENT ADMIT TO UNIT AT 0920.A/O X4. SOB WITH EXERTION. HAD TWO BLACK RED STOOL. HBG DOWN TO 8.6. BP ON LOW SIDE. TOLERATED FULL LIQUID. C/O NAUSEA. PAIN MEDS GIVEN NEEDS. WILL KEEP MONITOR.
[2018-11-11 19:04] VITALS: BP 94/51
[2018-11-11 20:29] LABS: HEMOGLOBIN 7.4 gm/dL (14.0-18.0)
[2018-11-12 04:45] VITALS: BP 109/64
--- NOTE | 2018-11-12 06:17 | NUR ---
PT AMBULATING TO BATHROOM WITH STANDBY ASSIST AND IS TOLERATING FAIR. FENTANYL AND LORTAB PROVIDING PAIN RELIEF. RESTING OFF AND ON. CALL LIGHT WITHIN REACH. WILL CONTINUE TO PROVIDE FREQUENT OBSERVATION.
[2018-11-12 07:22] VITALS: BP 104/82
[2018-11-12 10:56] VITALS: BP 104/59
[2018-11-12 15:32] VITALS: BP 102/57
--- NOTE | 2018-11-12 16:46 | NUR ---
INITIAL ASSESSMENT: Consult received to assist with coordination of pt returning home with hospice services. SW reviewed chart and spoke with attending physician and palliative care physician. Pt was admitted from home due to upper GI bleed. Pt with hx of metastatic lung cancer. Oncology consulted. Pt is a DNR. Palliative care physician met with pt and family. Plan is for pt to discharge home with [facility] when stable. SW to fax referral to [facility] tomorrow morning to coordinated hospice info visit and evaluation. SW is following to assist as needed with discharge planning.
[2018-11-12 16:59] LABS: HEMOGLOBIN 6.9 gm/dL (14.0-18.0); WBC 3.7 thou/uL (4.0-11.0)
[2018-11-12 17:00] LABS: HEMATOCRIT 20.9 % (42.0-52.0); MCH 30.8 pg (26.0-34.0); MCHC 32.9 g/dL (28.0-37.0); MCV 93.8 fL (80.0-100.0); RBC 2.23 mil/uL (4.50-6.00); RDW 14.2 % (10.5-14.5)
--- NOTE | 2018-11-12 18:13 | NUR ---
PATIENT HAS COMPLAINED OF PAIN THROUGH THE DAY. DIFFERENT APPROACHES GIVEN WITH RESULTING COMBINATION OF TRAZODONE/MS ER AND LIDOCAINE PATCH BEING MOST EFFECTIVE HE IS NOW SLEEPING. RESPIRATIONS ARE LABORED WITH EXERTION. PATIENT DID APPEAR ANXIOUS EARLIER, REQUESTED PRN XANAX WHICH WAS GIVEN AND IT WAS EFFECTIVE. DR MERCHANT SAW PATIENT WITH FAMILY, DISCUSSED HOSPICE AND THEY WERE RECEPTIVE TO HOSPICE SERVICES. WILL BE DISCHARGED HOME EVENTUALLY WITH HOSPICE CARE. WILL CONT WITH PLAN OF CARE.
[2018-11-12 20:10] VITALS: BP 108/54
[2018-11-13 04:15] VITALS: BP 90/61
--- NOTE | 2018-11-13 06:24 | NUR ---
FOLLOWING POC WITH IVF PROTONIX AND IVF FLUIDS. PAIN CONTROL WAS MAIN OBJECTIVE FOR THE PT THIS SHIFT. TRYING A Q2 MEDICATION PIGGYBACK TO STOP THE BREAK THROUGH PAIN WAS ACHIEVED PER THE PATIENT THIS AM. PT STATED HE HAS NO PAIN AND SLEPT THE BEST IN AWHILE. VSS, NO BLEEDING VIA EMESIS NOR STOOL OBSERVED. PTS DAUGHTER ROOMING IN. HOURLY ROUNDING.
[2018-11-13 06:28] LABS: HEMATOCRIT 21.4 % (42.0-52.0); HEMOGLOBIN 7.3 gm/dL (14.0-18.0); MCH 31.7 pg (26.0-34.0); MCV 93.2 fL (80.0-100.0); RBC 2.29 mil/uL (4.50-6.00); RDW 14.1 % (10.5-14.5); WBC 3.6 thou/uL (4.0-11.0)
--- NOTE | 2018-11-13 07:28 | HC ---
[facility] [place] [address] CONSULTATION Name: JAKCSONDAWIT VARGAS Room #: 354-P ADM IN M.R.#: [id number] Admission: 11/11/18 ������������������ Attend Phys: Julien Pena MD Discharge: ������������������ Date of : 36 Report #: [id number] THIS REPORT FOR: //name// CC: RYNE Coleman MD [facility] VICKY ROCHA DATE OF SERVICE: 11/12/2018 REQUESTING PHYSICIAN: Julien Pena M.D. HISTORY OF PRESENT ILLNESS: The patient is a very pleasant 83-year-old male with a history of both an adenocarcinoma of the stomach as well as a PET avid lung lesion. This likely represents a second primary. The patient recently had been restarted on Plavix and unfortunately developed hematemesis and hematochezia. On his admission, his hemoglobin was approximately 9.2, then 8.6, 7.4 most recently. He is also having some chronic back pain, which is present before the gastric cancer and also is quite nervous. The patient denies any fever, though he has a slight temperature at 99.1. Actually this morning, his breathing he says, feels okay. He does not feel lightheaded, but he has not been up walking around. He has not had any abnormal bowel movements since he has been admitted. Urine is normal. No skin rashes. PAST MEDICAL HISTORY: Notable for the large ulcer found in the gastric fundus on 09/03/2018. This is consistent with an invasive moderately differentiated adenocarcinoma, intestinal type. The patient has previously seen Dr. Frias. They did an exploratory laparotomy, tumor is localized. The patient decided not to undergo additional surgery because of the recovery time. He also had numerous discussions with Dr. Katty Rocha, but again, because of hypotension, the doctor decided not to. He also has a clinically probable left upper lobe lung cancer that measures 2.9 cm, it is PET avid. He also has history of coronary artery disease, hypertension, COPD and degenerative joint disease. LABORATORY DATA: Recent lab work here includes a BUN of 23, creatinine 0.7. Recent white count of 5.3, hemoglobin 7.4, platelets 192, MCV 94.1. MEDICATIONS: At this time in the hospital currently include timolol for his eyes, lorazepam 0.5 q.i.d. p.r.n. that was added by myself, hydrocodone 1 q.8 and also 2 q.6 p.r.n., fentanyl p.r.n., latanoprost eyedrops, pantoprazole drip. [facility] [address] [place] [address] CONSULTATION Name: DAWIT PAZ Room #: 354-P [facility] IN M.R.#: [id number] Admission: 11/11/18 ������������������ Attend Phys: Julien Pena MD Discharge: ������������������ Date of : 36 Report #: [id number] PHYSICAL EXAMINATION: GENERAL: The patient appears his stated age. VITAL SIGNS: Height is 5 feet 9 inches, 175.3 cm. Weight is 150 pounds or 68.04 kg. Blood pressure 104/82, O2 sat 97%, respirations 20, pulse 76, temperature is 99.1 axillary. MOOD: The patient is alert and conversant. Slightly nervous. NEUROLOGIC: The patient is moving all extremities. Speech and thought pattern appear to be normal. LUNGS: Clear. HEART: Regular rate. Slightly tachy. EXTREMITIES: Without clubbing, cyanosis or edema. The patient has mid back pain, not worsened by deep breath. ASSESSMENT AND PLAN: 1. Gastric cancer. The patient has had multiple discussions with surgery and radiation therapy to decide to go more comfort measures and palliative care route, though we would like to consider continued transfusions. 2. Back pain, probably not related to his cancer. Continue hydrocodone at increased dose. We will also consider having an oxycodone or Dilaudid available. 3. Slight nervousness. We will try a lower dose Ativan again. The previous time when he had difficulties may be related to the morphine. 4. Hypertension. Medications per others. 5. Coronary artery disease. Avoid Plavix if possible. 6. Gastrointestinal bleed. Follow serial hemoglobins, transfuse if less than 7. Could consider IR embolization if bleeding continues. Continue proton pump inhibitor. We will follow with you. ��������������������������������������������� <ELECTRONICALLY SIGNED> ���������������������������������������� By: Vinayak Soto MD ��������������������������������������������� 11/13/18 0728 [id number] Vinayak Soto MD /nt
[2018-11-13 07:35] VITALS: BP 129/68
[2018-11-13 11:43] VITALS: BP 128/71
--- NOTE | 2018-11-13 13:57 | NUR ---
LEONARD reviewed chart and spoke with nursing and attending physician. LEONARD met with pt and dtr, Kerline, at bedside to discuss referral to [facility]. Kerline states she would like to be contacted in order to arrange for pt's to also be present during time of hospice info visit/eval. LEONARD explained process for discharge to home with hospice. Pt and spouse live in [place]. Pt with hx of metastatic lung CA. Pt and family have opted to begin comfort care measures. Pt has hospital bed, BSC and O2 in place at home through [facility]. LEONARD explained that hospice may be switching out his equipment to use their DME provider. LEONARD confirmed pt's home address and contact info. LEONARD faxed clinical info to [facility] and spoke with Kami in intake, who confirmed info was received. [facility] to contact pt's dtr to arrange meeting. Final discharge orders/summary will need to be faxed to [facility] when available. LEONARD is following to assist as needed with discharge planning. [facility]--
[2018-11-13 15:23] VITALS: BP 110/63
[2018-11-13 17:42] LABS: HEMATOCRIT 21.7 % (42.0-52.0); HEMOGLOBIN 7.2 gm/dL (14.0-18.0); MCHC 33.2 g/dL (28.0-37.0); MCV 93.3 fL (80.0-100.0); RBC 2.33 mil/uL (4.50-6.00); RDW 14.4 % (10.5-14.5); WBC 3.8 thou/uL (4.0-11.0)
[2018-11-13 19:05] VITALS: BP 99/58
--- NOTE | 2018-11-13 19:16 | NUR ---
PATIENT HAS A NEW PAIN MEDICATION REGIME. SEEMS TO BE EFFECTIVE. STATES HIS PAIN IS JUST NOT GOING AWAY. HE HAD ON BOWEL MOVEMENT THIS PM AND IT WAS DARK, WATERY AND BLOODY. HE DOES APPEAR WEAK. EDUCATED ON NEW MEDICATIONS. NOW SLEEPING. DAUGHTER IN ROOM. WILL CONT WITH PLAN OF CARE.
--- NOTE | 2018-11-14 03:17 | NUR ---
FOLLOWING NEW POC FOR PAIN CONTROL. SEEMS TO BE WORKING PT STATES NO PAIN. IVF INFUSING AND PROTONIX GTT FOR GI BLEED. ASSISTED PT TO BATHROOM, BUT NO BM'S NOTED, ONLY MICTRATION. PT DAUGHTER ROOMING IN. HOURLY ROUNDING.
[2018-11-14 04:40] VITALS: BP 100/55
[2018-11-14 07:05] LABS: HEMATOCRIT 20.8 % (42.0-52.0); MCH 31.4 pg (26.0-34.0); MCHC 33.5 g/dL (28.0-37.0); MCV 93.7 fL (80.0-100.0); RBC 2.22 mil/uL (4.50-6.00); RDW 14.1 % (10.5-14.5); WBC 3.8 thou/uL (4.0-11.0)
[2018-11-14 07:43] VITALS: BP 112/54
[2018-11-14 11:13] VITALS: BP 106/54
[2018-11-14 15:05] VITALS: BP 123/73; BP 90/56
--- NOTE | 2018-11-14 16:12 | NUR ---
LEONARD reviewed chart and spoke with nursing and attending physician. Discharge home with [facility] is anticipated for tomorrow. LEONARD spoke with Kami in intake at [facility] to provide update and notify of discharge. Kami states that she spoke with pt's dtr, Kerline, earlier today. DME will be delivered to pt's home tomorrow morning. [facility] will need final discharge orders. Pt's family will provide transportation home tomorrow. LEONARD is following to assist as needed with discharge planning.
--- NOTE | 2018-11-14 18:40 | NUR ---
care of pt assumed this am @ ~0700. pt noted to be awake talking w/ his daughter awaiting breakfast. pt requesting a regular meal vs full liquids. pt w/ an extremely poor appetitie for food and fluid. ivf's stopped today, pt encouraged to increase his po fluid intake to compensate for. pt co lower back pain 8-9/10 today, given liquid mso4 w/ relief of 0-6/10. pt noted to become very sleepy and difficult to arouse lunch time, thus not eating his lunch. pt received 1 unit of RBC's today w/o an adverse reaction. pt more awake to enjoy and partake in his dinner. pt noted to not have urinated today, bladder scanned this evening after dinner w/ a residual of >950cc. pt will be straight cath'ed by rn post shift report. pt does not have any discomfort from his bladder at this time, attempted to void per bsc, but unable. pt w/ x1 family member at bs. pt verbalized plan to dc to home tomorrow w/ hospice and he is looking forward to that.
[2018-11-14 20:20] VITALS: BP 100/68
[2018-11-14 20:59] LABS: HEMATOCRIT 25.5 % (42.0-52.0); HEMOGLOBIN 8.5 gm/dL (14.0-18.0); MCH 30.4 pg (26.0-34.0); MCHC 33.5 g/dL (28.0-37.0); RBC 2.81 mil/uL (4.50-6.00); RDW 16.8 % (10.5-14.5); WBC 4.9 thou/uL (4.0-11.0)
[2018-11-15 04:20] VITALS: BP 103/62
--- NOTE | 2018-11-15 05:01 | NUR ---
PT WILL PROBABLY DC TODAY TO HOME WITH HOSPICE. PT IS SLEEPING MORE THIS EVENING VERSUS LAST TWO NIGHTS. LUNG SOUNDS ARE COURSE/DIMINISHED. PT ATE SOME DINNER THIS EVENING AND HAD COMPLAINTS OF NAUSEA, IV ZOFRAN GIVEN WITH GOOD RESULTS OF CONTROLLING N/V. PAIN CONTROL SEEMS TO BE IN CONTROL. ALL IV FLUIDS HAVE BEEN STOPPED AND ORAL FLUIDS ARE ENCOURAGED. HOURLY ROUNDING.
[2018-11-15 05:11] LABS: HEMATOCRIT 25.5 % (42.0-52.0); HEMOGLOBIN 8.5 gm/dL (14.0-18.0); MCH 30.5 pg (26.0-34.0); MCHC 33.5 g/dL (28.0-37.0); RBC 2.8 mil/uL (4.50-6.00); RDW 16.9 % (10.5-14.5); WBC 3.8 thou/uL (4.0-11.0)
[2018-11-15 07:40] VITALS: BP 107/64
[2018-11-15 10:35] VITALS: BP 107/64
[2018-11-15 11:28] VITALS: BP 107/63
--- NOTE | 2018-11-15 14:22 | NUR ---
SW reviewed chart and spoke with nursing and attending physician. Pt is not ready for discharge today. Pt has ibarra catheter placed and working on pt's level of pain. SW updated Kami at [facility]. SW met with pt and family at bedside to provide upate and discuss discharge plan. Pt's dtr states that pt's spouse and other dtr are discussing if pt would be able to return home with hospice. Pt's family is thinking that his care needs may be too high. Pt's dtr, Kerline, states that they might consider [facility]. SW discussed hospice services in a LTC facility closer to home. Pt's dtr states that they would not want to consider the LTC facilities in [place]. SW is following to assist as needed with discharge planning.
[2018-11-15 16:08] VITALS: BP 111/63
--- NOTE | 2018-11-15 19:35 | NUR ---
PATIENT ADMITTED TO HOSPICE AND WAS TO GO HOME WITH HOSPICE. FAMILY NOTITIFIED PROVIDER THEY WILL NOT BE ABLE TO TAKE CARE OF PATIENT AT HOME. MAY CONSIDER PLACEMENT IN HOSPICE HOUSE. HE HAS REMAINED WEAK. HAS TWO EPISODES OF N/V AND PRN ZOFRAN ADMINISTERED. CARR INSERTED THIS AM AND IT IS DRAINING WELL. NO BM TODAY. WILL CONT WITH PLAN OF CARE.
[2018-11-15 20:00] VITALS: BP 117/62
[2018-11-16 03:30] VITALS: BP 107/71
--- NOTE | 2018-11-16 06:46 | NUR ---
PT MAKING SLOW PROGRESS TOWARDS GOALS. PAIN MEDICATION GIVEN PER ORDERS. ORIGINALLY C/O GENERALIZED ABDOMINAL PAIN. DOES REPORT MILD RELIEF WITH PAIN MEDICATION DOSING. THIS AM PT REPORTING MILD PAIN IN HIS ABDOMEN. DID STATE THAT HE WAS HAVING NECK PAIN. ROXANOL GIVEN AT THAT TIME PER DAUGHTER REQUEST.
[2018-11-16 07:40] VITALS: BP 131/75
--- NOTE | 2018-11-16 08:26 | NUR ---
DISCHARGE PLANNING. [facility] RECOMMENDED FOR PATIENT BEST PLAN OF DISCHARGE CARE. PATIENT REFERRAL FAXED TO [facility] FOR REVIEW. LIAISON TO MEET WITH PATIENT AND FAMILY TODAY REGARDING [facility] SERVICES AND CARE. UNIT CM/SW AWARE, FOLLOWING TO ASSIST WITH DISCHARGE NEEDS.
--- NOTE | 2018-11-16 14:03 | NUR ---
LEONARD reviewed chart and spoke with nursing and attending physician. Pt is medically stable for discharge. LEONARD met with pt's and dtrs to discuss discharge plan. Pt's states that after consideration, they have decided to have pt evaluated for [facility]. Pt's and family state that pt's condition has declined to a point, where they do not feel they can provide pt with the level of care that he needs. LEONARD explained evaluation and admission process for the [facility]. Pt's family verbalized understanding and agreeable with plan. Clinical info faxed to [facility]. LEONARD spoke with Nikki in intake, who states that [facility] nurse liaison, Lisseth, will evaluate pt. Evaluation completed. Pt does meet admission criteria for the [facility]. [facility] does not have a room available at this time. Anticipated a room will be available later today or tomorrow. Outside the Hospital DNR form and ambulance form placed on pt's chart. Nurse to call report to [facility] when a room is available. LEONARD updated Hung at [facility]. LEONARD is available to assist as needed with discharge planning. [facility]--
[2018-11-16] MEDS ORDERED: FENTANYL1 EAC1 TRANSDERM (14:06)
[2018-11-16] MEDS ORDERED: FLOMAX0.4 MG PO (14:07)
[2018-11-16] MEDS ORDERED: LIDOPATCH1 EACH TRANSDERM (14:07)
[2018-11-16] MEDS ORDERED: OMEPRAZOLE 20 M20 M1 PER TUBE (14:07)
[2018-11-16] MEDS ORDERED: XANAX 0.5 MG0.5 M1 PO (14:07)
--- NOTE | 2018-11-16 19:18 | NUR ---
CONT ON COMFORT CARE AT THIS TIME. HE HAS RESTED IN BED THROUGH THE DAY. HE ADEQUATELY MEDICATED FOR PAIN. FAMILY IN ROOM. HOSPICE HOUSE HERE TO EVALUATE PATIENT AND HE WILL ADMITTED ONCE THERE IS A BED AVAILABLE. WILL CONT WITH PLAN OF CARE.
--- NOTE | 2018-11-17 06:35 | NUR ---
PT MAKING SLOW PROGRESS TOWARDS GOALS. MUCH OF THE NIGHT PT DROWSY AND PAIN MEDICATION GIVEN PER FAMILY REQUEST. DAUGHTER DID EXPRESS CONCERN THAT THE 30MG ROXANOL DOSE MIGHT BE TOO MUCH LIQUID VOLUME FOR THE PT TO HANDLE. DOSE REDUCED TO 20MG. DID NOT NOTICE PT COUGH OR CHOKE WITH ANY DOSES GIVEN. TREATMENTS, VITAL SIGNS, MEDS DONE PER FAMILY REQUEST.
--- NOTE | 2018-11-17 10:25 | NUR ---
PATIEN DISCHARGE AT THIS TIME TO HOSPICE HOUSE. REPORT CALLED TO HOSPICE HOUSE. HE HAD A DOSE OF MORPHINE JUST BEFORE DEPARTURE. HAD XANAX EARLIER. HE IS NOT AWARE OF HIS ENVIRONMENT. CARR AND IV TO LFA IN PLACE.
== END 2018-11-17 10:30 | disposition hospice, inpatient (51) | DRG 374 ==
LOC: 3W 09:27
PROVIDERS: Hospitalist; Internal Medicine Hematology & Oncology; ADMIT Family Medicine
PROC: 30233N1 Transfusion of Nonautologous Red Blood Cells into Peripheral Vein, Percutaneous Approach (ICD-10-PCS; principal; 2018-11-14)
DX: C16.9 Malignant neoplasm of stomach, unspecified (principal); E43 Unspecified severe protein-calorie malnutrition; K92.2 Gastrointestinal hemorrhage, unspecified; K92.0 Hematemesis; C34.90 Malignant neoplasm of unspecified part of unspecified bronchus or lung; C79.89 Secondary malignant neoplasm of other specified sites; D62 Acute posthemorrhagic anemia; I25.10 Atherosclerotic heart disease of native coronary artery without angina pectoris; I10 Essential (primary) hypertension; Z66 Do not resuscitate; I73.9 Peripheral vascular disease, unspecified; K59.00 Constipation, unspecified; R33.9 Retention of urine, unspecified; F41.1 Generalized anxiety disorder; R41.0 Disorientation, unspecified; E78.5 Hyperlipidemia, unspecified; J44.9 Chronic obstructive pulmonary disease, unspecified; M19.90 Unspecified osteoarthritis, unspecified site; R45.0 Nervousness; Z90.49 Acquired absence of other specified parts of digestive tract; Z95.5 Presence of coronary angioplasty implant and graft; Z87.891 Personal history of nicotine dependence; Z88.8 Allergy status to other drugs, medicaments and biological substances; Z68.22 Body mass index [BMI] 22.0-22.9, adult; Z79.899 Other long term (current) drug therapy
CPT/HCPCS: 10080; 10779; 10879